=== PATIENT | female | born 1960 | race Caucasian/White ===

== ENCOUNTER 2018-05-15 12:39 | Day surgery (SDC) | payer OTHER ==
[~2018-05-15] VITALS: Ht 152.4 cm; Wt 69.4 kg
[2018-05-15 15:04] VITALS: Ht 152.4 cm; Wt 69.4 kg
[2018-05-15 15:11] VITALS: BP 133/74; PULSE 84; RESP 20
[2018-05-15] MEDS ORDERED: NO HOME MEDS (15:12)
[2018-05-15] MEDS ORDERED: MIDAZOLAM 1 MG/ML 2 ML INJ ONE ×3 (15:46)
[2018-05-15] MEDS ORDERED: FENTAnyl 50 MCG/ML VIAL ONE (15:46)
[2018-05-15 16:05] VITALS: BP 100/56; PULSE 81; RESP 17
== END 2018-05-15 16:38 | disposition home or self-care (01) ==
LOC: GIL 12:39
PROVIDERS: ATTEND Internal Medicine Gastroenterology
DX: Z12.11 Encounter for screening for malignant neoplasm of colon (principal); K64.8 Other hemorrhoids
CPT/HCPCS: 45378; J2250; J3010